=== PATIENT | male | born 1995 | race African-American/Black ===

== ENCOUNTER 2022-12-14 12:52 | Emergency (ER) | payer BC ==
[2022-12-14 13:09] VITALS: BMI 24.1
[2022-12-14] MEDS ORDERED: ONDANSETRON 4 MG/2 ML VIAL IVPUSH ONE (13:58)
[2022-12-14] MEDS ORDERED: FAMOTIDINE 20 MG/50 ML IVPB 20 MG/50 ML MG IVPB ONE ×2 (13:58→14:36)
[2022-12-14] MEDS ORDERED: LACTATED RINGERS SOLUTION 1,000 ML/1,000 ML INFUS.BAG IV SCH (14:00)
[2022-12-14] MEDS ORDERED: ONDANSETRON 4 MG/2 ML VIAL ONE (14:36)
[2022-12-14 14:55] LABS: BASO % 0.8 % (0-2.0); EOS % 0.1 % (0-4.5); HEMATOCRIT 36.7 % (35.4-49); HEMOGLOBIN 12.3 GM/dL (11.7-16.9); LYMPH % 16.2 % (8-40); MCH 31.7 pg (25.7-33.7); MCHC 33.6 g/dl (32.0-35.9); MEAN CELL VOLUME 94.3 fl (80-96); MEAN PLT VOLUME 9.8 fl (7.5-11.1); MONO % 3.7 % (3.8-10.2); NEUT % 79.2 % (42.8-82.8); PLATELET COUNT 243 10^3/uL (134-434); RBC 3.89 M/mm3 (4.00-5.60); RDW 12.7 % (11.9-15.9); WHITE BLOOD COUNT 5.7 K/mm3 (4.0-10.0)
[2022-12-14 15:24] LABS: POTASSIUM 5.4 mmol/L (3.5-5.1)
[2022-12-14 15:25] LABS: CALCIUM 9.3 mg/dL (8.5-10.1)
[2022-12-14 15:27] LABS: ALBUMIN 3.7 g/dl (3.4-5.0); BLOOD UREA NITROGEN 7.5 mg/dL (7-18)
[2022-12-14 15:30] LABS: CREATININE 1.1 mg/dL (0.55-1.3)
[2022-12-14 15:31] LABS: BILIRUBIN,TOTAL 0.8 mg/dL (0.2-1)
[2022-12-14 15:32] LABS: TOT PROT 7.6 g/dl (6.4-8.2)
[2022-12-14 17:56] LABS: POTASSIUM 4.5 mmol/L (3.5-5.1)
[2022-12-14 17:59] LABS: ALBUMIN 3.6 g/dl (3.4-5.0); BLOOD UREA NITROGEN 7.7 mg/dL (7-18); CALCIUM 9.2 mg/dL (8.5-10.1)
[2022-12-14 18:03] LABS: CREATININE 0.9 mg/dL (0.55-1.3)
[2022-12-14 18:05] LABS: BILIRUBIN,TOTAL 0.7 mg/dL (0.2-1); TOT PROT 6.9 g/dl (6.4-8.2)
[2022-12-14 18:56] VITALS: BP 128/74; PULSE 60; RESP 16; TEMP 98
== END 2022-12-14 19:49 | disposition home or self-care (01) ==
LOC: JER 12:52
PROC: 3E033GC Introduction of Other Therapeutic Substance into Peripheral Vein, Percutaneous Approach (ICD-10-PCS; principal; 2022-12-14)
PROC: 3E033GC Introduction of Other Therapeutic Substance into Peripheral Vein, Percutaneous Approach (ICD-10-PCS; 2022-12-14)
DX: R11.2 Nausea with vomiting, unspecified (principal); R19.7 Diarrhea, unspecified; R68.83 Chills (without fever); R10.84 Generalized abdominal pain
CPT/HCPCS: 36415; 80053; 83690; 85025

== ENCOUNTER 2023-06-07 16:50 | Emergency (ER) | payer BC ==
[2023-06-07 16:58] VITALS: BP 124/66; PULSE 67; RESP 20; TEMP 98.6; BMI 23.7
[2023-06-07] MEDS ORDERED: SODIUM CHLORIDE 1,000 ML IV STA (17:50)
[2023-06-07] MEDS ORDERED: MAG HYDROX/AL HYDROX/SIMETH 30 ML UNIT-DOSE CUP PO ONE (17:50)
[2023-06-07] MEDS ORDERED: ONDANSETRON 4 MG/2 ML VIAL IVPUSH ONE (17:50)
[2023-06-07] MEDS ORDERED: FAMOTIDINE 20 MG/50 ML IVPB 20 MG/50 ML MG IVPB ONE ×2 (17:50→18:27)
[2023-06-07] MEDS ORDERED: ONDANSETRON 4 MG/2 ML VIAL ONE (18:27)
[2023-06-07] MEDS ORDERED: MAG HYDROX/AL HYDROX/SIMETH 30 ML UNIT-DOSE CUP ONE (18:27)
[2023-06-07 18:42] LABS: BASO % 0.1 % (0-2.0); HEMATOCRIT 38.4 % (35.4-49); LYMPH % 15.9 % (8-40); MCHC 33.7 g/dl (32.0-35.9); MEAN CELL VOLUME 94.8 fl (80-96); MEAN PLT VOLUME 10.3 fl (7.5-11.1); MONO % 9.4 % (3.8-10.2); NEUT % 74.6 % (42.8-82.8); PLATELET COUNT 177 10^3/uL (134-434); RBC 4.05 M/mm3 (4.00-5.60); RDW 12.4 % (11.9-15.9); WHITE BLOOD COUNT 8.1 K/mm3 (4.0-10.0)
[2023-06-07 19:07] LABS: POTASSIUM 3.7 mmol/L (3.5-5.1)
[2023-06-07 19:10] LABS: CALCIUM 9.2 mg/dL (8.5-10.1)
[2023-06-07 19:11] LABS: ALBUMIN 4.1 g/dl (3.4-5.0); BLOOD UREA NITROGEN 11.5 mg/dL (7-18)
[2023-06-07 19:13] LABS: CREATININE 1.2 mg/dL (0.55-1.3)
[2023-06-07 19:15] LABS: BILIRUBIN,TOTAL 0.9 mg/dL (0.2-1)
== END 2023-06-07 21:04 | disposition home or self-care (01) ==
LOC: JER 16:50
PROC: 3E033GC Introduction of Other Therapeutic Substance into Peripheral Vein, Percutaneous Approach (ICD-10-PCS; principal; 2023-06-07)
PROC: 3E033GC Introduction of Other Therapeutic Substance into Peripheral Vein, Percutaneous Approach (ICD-10-PCS; 2023-06-07)
PROC: 3E0337Z Introduction of Electrolytic and Water Balance Substance into Peripheral Vein, Percutaneous Approach (ICD-10-PCS; 2023-06-07)
DX: R10.12 Left upper quadrant pain (principal); R11.2 Nausea with vomiting, unspecified; R63.0 Anorexia; Z20.822 Contact with and (suspected) exposure to COVID-19
CPT/HCPCS: 0241U-QW; 36415; 80053; 83690; 85025; 96361; 96365; 96375; 99284-25

== ENCOUNTER 2023-07-15 16:22 | Emergency (ER) | payer BC ==
[2023-07-15 16:55] VITALS: BP 134/76; PULSE 88; RESP 19; TEMP 98.4; BMI 25.1
[2023-07-15] MEDS ORDERED: MAG HYDROX/AL HYDROX/SIMETH 30 ML UNIT-DOSE CUP ONE (17:20)
[2023-07-15] MEDS ORDERED: ACETAMINOPHEN INJECTION 100 ML IVPB ONE (17:20)
[2023-07-15] MEDS ORDERED: FAMOTIDINE 20 MG/50 ML IVPB 20 MG/50 ML MG IVPB ONE (17:21)
[2023-07-15] MEDS ORDERED: ONDANSETRON 4 MG/2 ML VIAL ONE (17:21)
[2023-07-15] MEDS: ACETAMINOPHEN 1000 MG/100 ML BAG IVPB ONE (17:50)
[2023-07-15] MEDS: FAMOTIDINE 20 MG/50 ML IVPB 20 MG/50 ML MG IVPB ONE (17:50)
[2023-07-15] MEDS: SODIUM CHLORIDE 0.9% 500 ML INFUS.BAG IV ONE (17:50)
[2023-07-15] MEDS: ONDANSETRON 4 MG/2 ML VIAL IVPUSH ONE (17:50)
[2023-07-15] MEDS: MAG HYDROX/AL HYDROX/SIMETH 30 ML UNIT-DOSE CUP PO ONE (18:04)
[2023-07-15 18:07] LABS: BASO % 0.6 % (0-2.0); EOS % 0.3 % (0-4.5); HEMATOCRIT 40.6 % (35.4-49); LYMPH % 22.1 % (8-40); MCH 31.9 pg (25.7-33.7); MCHC 34.4 g/dl (32.0-35.9); MEAN CELL VOLUME 92.7 fl (80-96); MEAN PLT VOLUME 9.4 fl (7.5-11.1); MONO % 5.5 % (3.8-10.2); NEUT % 71.5 % (42.8-82.8); PLATELET COUNT 208 10^3/uL (134-434); RBC 4.38 M/mm3 (4.00-5.60); RDW 12.2 % (11.9-15.9); WHITE BLOOD COUNT 6.2 K/mm3 (4.0-10.0)
[2023-07-15 18:32] LABS: POTASSIUM 3.7 mmol/L (3.5-5.1)
[2023-07-15 18:34] LABS: CALCIUM 9.5 mg/dL (8.5-10.1)
[2023-07-15 18:35] LABS: ALBUMIN 4.2 g/dl (3.4-5.0); BLOOD UREA NITROGEN 10.6 mg/dL (7-18)
[2023-07-15 18:39] LABS: BILIRUBIN,TOTAL 1.3 mg/dL (0.2-1); TOT PROT 7.7 g/dl (6.4-8.2)
[2023-07-15] MEDS ORDERED: HALOPERIDOL LACTATE 5 MG/ML ONE (19:50)
[2023-07-15] MEDS: HALOPERIDOL LACTATE 5 MG/ML IM ONE (19:55)
== END 2023-07-15 20:56 | disposition home or self-care (01) ==
LOC: JER 16:22
PROC: 3E033GC Introduction of Other Therapeutic Substance into Peripheral Vein, Percutaneous Approach (ICD-10-PCS; principal; 2023-07-15)
PROC: 3E033NZ Introduction of Analgesics, Hypnotics, Sedatives into Peripheral Vein, Percutaneous Approach (ICD-10-PCS; 2023-07-15)
PROC: 3E033GC Introduction of Other Therapeutic Substance into Peripheral Vein, Percutaneous Approach (ICD-10-PCS; 2023-07-15)
PROC: 3E023GC Introduction of Other Therapeutic Substance into Muscle, Percutaneous Approach (ICD-10-PCS; 2023-07-15)
DX: R11.2 Nausea with vomiting, unspecified (principal); R10.9 Unspecified abdominal pain; R19.7 Diarrhea, unspecified; Z20.822 Contact with and (suspected) exposure to COVID-19
CPT/HCPCS: 0241U-QW; 36415; 80053; 83690; 83735; 84484; 85025; 93005; 93010; 99284-25; J0131

== ENCOUNTER 2023-07-16 23:08 | Observation (INO) | payer BC ==
[2023-07-16] MEDS: EPINEPHrine 1:1,000 0.3 MG/0.3 ML SYR IM ONE (23:28)
[2023-07-16] MEDS: DEXAMETHASONE SOD PHOSPHATE 10 MG/1 ML VIAL IVPUSH ONE (23:28)
[2023-07-16] MEDS: FAMOTIDINE 20 MG/50 ML IVPB 20 MG/50 ML MG IVPB ONE (23:29)
[2023-07-16 23:35] LABS: BASO % 0.7 % (0-2.0); EOS % 0.5 % (0-4.5); HEMATOCRIT 34.5 % (35.4-49); HEMOGLOBIN 11.9 GM/dL (11.7-16.9); MCH 32.2 pg (25.7-33.7); MCHC 34.5 g/dl (32.0-35.9); MEAN CELL VOLUME 93.2 fl (80-96); MEAN PLT VOLUME 9.4 fl (7.5-11.1); MONO % 11.5 % (3.8-10.2); NEUT % 45.3 % (42.8-82.8); PLATELET COUNT 179 10^3/uL (134-434); RDW 12.4 % (11.9-15.9); WHITE BLOOD COUNT 8.1 K/mm3 (4.0-10.0)
[2023-07-16 23:49] LABS: INR 1.06 (0.83-1.09); PROTHROMBIN TIME (PATIENT) 12.3 SEC (9.7-13.0)
[2023-07-16 23:51] LABS: ACTIVATED PTT 26.9 SECONDS (25.2-36.5)
[2023-07-17 00:04] LABS: POTASSIUM 3.1 mmol/L (3.5-5.1)
[2023-07-17 00:06] LABS: ALBUMIN 3.7 g/dl (3.4-5.0); BLOOD UREA NITROGEN 10.6 mg/dL (7-18); CALCIUM 8.6 mg/dL (8.5-10.1)
[2023-07-17 00:11] LABS: BILIRUBIN,TOTAL 0.5 mg/dL (0.2-1); TOT PROT 6.9 g/dl (6.4-8.2)
[2023-07-17] MEDS ORDERED: POTASSIUM CHLORIDE ORAL LIQUID 20 MEQ/15 ML ONE (01:02)
[2023-07-17] MEDS: POTASSIUM CHLORIDE ORAL LIQUID 20 MEQ/15 ML PO ONE (01:06)
[2023-07-17 01:26] LABS: MAGNESIUM 2.2 mg/dL (1.8-2.4)
[2023-07-17] MEDS ORDERED: SODIUM CHLORIDE 1,000 ML IV SCH (02:45)
[2023-07-17 03:29] VITALS: BMI 21.7
[2023-07-17] MEDS: SODIUM CHLORIDE 1,000 ML IV SCH (03:55)
[2023-07-17] MEDS: methylPREDNISolone NA SUCC 40 MG/1 ML VIAL IVPUSH SCH (03:56)
[2023-07-17 06:22] VITALS: BP 119/85; PULSE 61; RESP 18; TEMP 97.2
[2023-07-17 07:59] LABS: URINE BARBITURATES NEGATIVE (NEGATIVE)
[2023-07-17 08:00] LABS: METHADONE, UR NEGATIVE (NEGATIVE); OPIATES, URI NEGATIVE (NEGATIVE); PHENCYCLIDINE,URINE NEGATIVE (NEGATIVE); URINE BENZODIAZEPINES NEGATIVE (NEGATIVE)
[2023-07-17 08:04] LABS: COCAINE, UR NEGATIVE (NEGATIVE); URINE AMPHETAMINES NEGATIVE (NEGATIVE)
[2023-07-17 09:38] LABS: BASO % 0.3 % (0-2.0); HEMATOCRIT 39.2 % (35.4-49); HEMOGLOBIN 12.9 GM/dL (11.7-16.9); MCH 31.5 pg (25.7-33.7); MEAN CELL VOLUME 95.4 fl (80-96); MEAN PLT VOLUME 10.3 fl (7.5-11.1); MONO % 1.5 % (3.8-10.2); NEUT % 86.2 % (42.8-82.8); PLATELET COUNT 188 10^3/uL (134-434); RBC 4.11 M/mm3 (4.00-5.60); RDW 12.1 % (11.9-15.9); WHITE BLOOD COUNT 5.7 K/mm3 (4.0-10.0)
[2023-07-17 10:00] LABS: POTASSIUM 4.3 mmol/L (3.5-5.1)
[2023-07-17] MEDS ORDERED: ENOXAPARIN NA (PORCINE) 40 MG/0.4 ML DISP.SYRIN SQ SCH (10:00)
[2023-07-17] MEDS ORDERED: FAMOTIDINE 20 MG/50 ML IVPB 20 MG/50 ML MG IVPB SCH (10:00)
[2023-07-17 10:02] LABS: CALCIUM 9.3 mg/dL (8.5-10.1)
[2023-07-17 10:03] LABS: ALBUMIN 4.1 g/dl (3.4-5.0); BLOOD UREA NITROGEN 8.2 mg/dL (7-18); MAGNESIUM 2.2 mg/dL (1.8-2.4)
[2023-07-17 10:06] LABS: CREATININE 0.9 mg/dL (0.55-1.3); PHOSPHOROUS 2.7 mg/dL (2.5-4.9)
[2023-07-17 10:07] LABS: BILIRUBIN,TOTAL 0.9 mg/dL (0.2-1)
[2023-07-17 10:08] LABS: TOT PROT 7.5 g/dl (6.4-8.2)
[2023-07-21 15:08] LABS: F018 BRAZIL NUT < 0.10 kU/L (Class 0); F201 PECAN NUT < 0.10 kU/L (Class 0)
== END 2023-07-17 08:50 | disposition home or self-care (01) ==
LOC: JER 23:08 → JERBED 07-17 01:34 → J7W 07-17 02:11
PROVIDERS: ADMIT Internal Medicine; ATTEND Nurse Practitioner Acute Care
PROC: 3E033GC Introduction of Other Therapeutic Substance into Peripheral Vein, Percutaneous Approach (ICD-10-PCS; principal; 2023-07-17)
PROC: 3E023GC Introduction of Other Therapeutic Substance into Muscle, Percutaneous Approach (ICD-10-PCS; 2023-07-17)
PROC: 3E0337Z Introduction of Electrolytic and Water Balance Substance into Peripheral Vein, Percutaneous Approach (ICD-10-PCS; 2023-07-17)
DX: T78.3XXA Angioneurotic edema, initial encounter (principal); T78.49XA Other allergy, initial encounter; X58.XXXA Exposure to other specified factors, initial encounter; Y99.8 Other external cause status; Z91.018 Allergy to other foods; Z29.89 Encounter for other specified prophylactic measures; F12.988 Cannabis use, unspecified with other cannabis-induced disorder
CPT/HCPCS: 36415; 70360-TC-FY; 71045-TC-FY; 80053; 80307; 83735; 84100; 85025; 85610; 85730; 86003; 86850; 86900; 86901; 93005; 93010; 96361; 96365; 96372; 96375; 96376; 99285-25; G0378; J0171; J1100

== ENCOUNTER 2024-07-19 11:10 | Emergency (ER) | payer BC ==
[2024-07-19 11:22] VITALS: BP 143/93; PULSE 77; RESP 18; TEMP 98.4; BMI 23.0
[2024-07-19] MEDS ORDERED: KETOROLAC TROMETHAMINE 30 MG/1 ML VIAL ONE (12:28)
[2024-07-19] MEDS ORDERED: TAMSULOSIN HCL 0.4 MG CAP ONE (12:31)
[2024-07-19] MEDS: KETOROLAC TROMETHAMINE 30 MG/1 ML VIAL IVPUSH ONE (12:45)
[2024-07-19] MEDS: SODIUM CHLORIDE 0.9% 1000 ML INFUS.BAG IV ONE (12:45)
[2024-07-19] MEDS: TAMSULOSIN HCL 0.4 MG CAP PO ONE (12:46)
[2024-07-19 12:53] LABS: EPI CELLS 5 /uL (0-25.1); HYALINE CASTS 0 /uL (0-3.1); PH,URINE 6.5 (5.0-8.0); URINE APPEARANCE CLEAR; URINE BACTERIA 9 /uL (0-1359); URINE BILIRUBIN NEGATIVE (NEGATIVE); URINE COLOR YELLOW; URINE GLUCOSE (UA) NEGATIVE (NEGATIVE); URINE KETONE TRACE (NEGATIVE); URINE LEUK ESTERASE NEGATIVE (NEGATIVE); URINE NITRITE NEGATIVE (NEGATIVE); URINE PROTEIN NEGATIVE (NEGATIVE); URINE RBC 140 /uL (0-23.9); URINE WBC 21 /uL (0-25.8)
[2024-07-19 12:56] LABS: BASO % 0.6 % (0-2.0); EOS % 0.2 % (0-4.5); HEMATOCRIT 40.9 % (35.4-49); HEMOGLOBIN 14.3 GM/dL (11.7-16.9); MCHC 34.9 g/dl (32.0-35.9); MEAN CELL VOLUME 91.8 fl (80-96); MONO % 11.1 % (3.8-10.2); NEUT % 61.1 % (42.8-82.8); PLATELET COUNT 187 10^3/uL (134-434); RBC 4.45 M/mm3 (4.00-5.60); RDW 12.6 % (11.9-15.9); WHITE BLOOD COUNT 6.1 K/mm3 (4.0-10.0)
[2024-07-19 13:21] LABS: CHLORIDE 98 mmol/L (98-107); SODIUM 133 mmol/L (136-145)
[2024-07-19 13:23] LABS: ALBUMIN 3.7 g/dl (3.4-5.0); BLOOD UREA NITROGEN 12.5 mg/dL (7-18); CALCIUM 9.3 mg/dL (8.5-10.1); CO2 32 mmol/L (21-32); GLUCOSE,RANDOM 81 mg/dL (74-106)
[2024-07-19 13:28] LABS: ANION GAP 3 mmol/L (4-13); BILIRUBIN,TOTAL 1.7 mg/dL (0.2-1); POTASSIUM 8.2 mmol/L (3.5-5.1); SGOT/AST 87 U/L (15-37); SGPT/ALT 29 U/L (13-61); TOT PROT 8.4 g/dl (6.4-8.2)
[2024-07-19 13:29] LABS: ALK PHOS 72 U/L (45-117)
[2024-07-19 14:14] LABS: HCV DIAGNOSTIC IN-HOUSE W/RFLX NON-REACTIVE (NONREACTIVE); HIV INTERPRETATION NEGATIVE (NEGATIVE)
== END 2024-07-19 16:07 | disposition home or self-care (01) ==
LOC: JER 11:10
PROC: 3E0333Z Introduction of Anti-inflammatory into Peripheral Vein, Percutaneous Approach (ICD-10-PCS; principal; 2024-07-19)
DX: N20.2 Calculus of kidney with calculus of ureter (principal); R10.32 Left lower quadrant pain
CPT/HCPCS: 36415; 74176-TC; 80053; 81003; 85025; 86803; 87086; 87389; 96374; 99285-25